=== PATIENT | male | born 1955 | race Hispanic/Latino ===

== ENCOUNTER 2017-03-27 17:51 | Emergency (ER) | payer OTHER ==
[~2017-03-27] VITALS: Ht 165.1 cm; Wt 81.6 kg
[~2017-03-27 17:51] MED LIST: PREDNISONE 10MG10 M1 PO; PROVENTIL0.09 MG/A1 INH; TESSALON PERLE100 MG PO; ZITHROMAX Z-PA250 M1 PO
[2017-03-27] MEDS ORDERED: FLUTICASONE PRO16 GM NASB (18:35)
--- NOTE | 2017-03-27 19:28 | ED INFLUENZA/URI COMPLAINT ---
History of Present Illness General Chief Complaint: Upper Respiratory Sx/Fever Stated Complaint: SINUS PRESSURE,CONGESTION,EAR PAIN,SORE THROAT Source: patient Exam Limitations: no limitations Vital Signs & Intake/Output Vital Signs & Intake/Output Vital Signs Date Time Temp Pulse Resp B/P B/P Pulse O2 O2 Flow FiO2 Mean Ox Delivery Rate 03/27 1940 99.1 102 18 109/62 97 03/27 1800 99.6 107 15 123/80 96 Room Air Room Air ED Intake and Output 03/28 0000 03/27 1200 Intake Total Output Total Balance Patient 180 lb Weight Weight Reported by Patient Measurement Method Allergies Coded Allergies: Iodinated Contrast- Oral and IV Dye (RASH 03/27/17) peach (FACIAL SWELLING 03/27/17) Reconcile Medications Amoxicillin/Potassium Clav (Augmentin 875-125 Tablet) 875 MG-125 MG TABLET 1 TAB PO BID SINSUSITIS Fluticasone Propionate 50 MCG/ACTUATION SPRAY.SUSP 2 SPRAY NASB DAILY ALLERGIES (Reported) Fluticasone Propionate (Flonase Allergy Relief) 50 MCG/ACTUATION SPRAY.SUSP 1 SPRAY GLADIS DAILY PRN CONGESTION Triage Note: PT TO ED FOR C/C OF SINUS PRESSURE, SORE THROAT, EAR PAIN AND SINUS CONGESTION X 1 WEEK. DENIES FEVERS. Triage Nurses Notes Reviewed? yes Onset: Gradual Duration: constant Timing: recent history Severity: moderate Severity Numbers: 5 HPI: Patient is a 62-year-old male who presents to emergency room with a gradual onset of 2 week history of right-sided sinus pressure and nasal congestion postnasal drip headache sore throat and low-grade fever. Patient is taking Flonase with no relief of symptoms. Denies any similar sick contacts. Denies any fever chills neck pain neck stiffness blurred vision ear pain chest pain cough shortness of breath rash and is otherwise without complaints. Patient is able to tolerate by mouth (TAMARA RUSSELL) Past History Travel History Traveled to [place] past 21 day No Medical History Any Pertinent Medical History? see below for history Cardiovascular: hyperlipidemia Surgical History Surgical History: non-contributory Psychosocial History What is your primary language Maltese Tobacco Use: Never used ETOH Use: denies use Illicit Drug Use: denies illicit drug use Family History Hx Contributory? No (TAMARA RUSSELL) Review of Systems Review of Systems Constitutional: Reports: see HPI. EENTM: Reports: see HPI, nasal congestion. Respiratory: Reports: no symptoms. Cardiovascular: Reports: no symptoms. GI: Reports: no symptoms. Genitourinary: Reports: no symptoms. Musculoskeletal: Reports: no symptoms. Skin: Reports: no symptoms. Neurological/Psychological: Reports: no symptoms. Hematologic/Endocrine: Reports: no symptoms. Immunologic/Allergic: Reports: no symptoms. All Other Systems: Reviewed and Negative (TAMARA RUSSELL) Physical Exam Physical Exam General Appearance: no apparent distress, alert Ears, Nose, Throat: moist mucous membrane, hearing grossly normal, Tympanic normal, pharynx normal, nasal congestion, nasal drainage Comments: Well-developed well-nourished person in no acute distress HEENT: Normal EENT exam, extraocular motion intact, no nystagmus. Pupils equally round and reactive to light and accommodation. Nose is atraumatic. External auditory canal and Tympanic membranes clear. Pharynx normal. No swelling or edema. Right maxillary sinus point tenderness noted Neck: Supple, no lymphadenopathy, normal range of motion without pain or tenderness Back: Nontender, no CVA tenderness. Cardiovascular: Regular rate and rhythms no murmurs rubs or gallops, normal JVP Respiratory: Chest nontender. No respiratory distress.breath sounds clear to auscultation bilaterally Abdomen: Soft, nontender nondistended, no appreciable organomegaly. Normal bowel sounds. No ascites Extremity: No edema, no calf tenderness to palpation, normal and equal pulses. Neuro: Alert oriented x3, motor sensory normal, Skin: No appreciable rash on exposed skin, skin is warm and dry. Psych: Mood and affect is normal, memory and judgment is normal. Core Measures Severe Sepsis Present: No Septic Shock Present: No (TAMARA RUSSELL) Progress Differential Diagnosis: influenza, meningitis, neutropenia, otitis, pneumonia, pharyngitis, sinusitis Plan of Care: Orders Procedure Date/time Status THROAT CULTURE W/QUICK STREP 03/27 1802 Active he was afebrile nontoxic-appearing clear lungs auscultation due to history of present illness and exam findings patient has suspicion of sinusitis. He was strongly advised to follow-up with the ENT as he has an establishment with a provider locally (TAMARA RUSSELL) Initial ED EKG: none (TAMARA RUSSELL) Departure Departure Disposition: HOME OR SELF CARE Condition: Stable Clinical Impression Primary Impression: Sinusitis Referrals: PATIENT HAS NO PRIMARY CARE DR (PCP/Family) Additional Instructions: As discussed begin the prescription of Augmentin as directed for the full course begin the prescription of Flonase for congestion. Begin [id number] Sudafed for congestion. Prescriptions are waiting a [facility] pharmacy. If no better in 4 days follow-up with your established ENT doctor. If symptoms worsen return to emergency room Departure Forms: Customer Survey General Discharge Information Prescriptions: Current Visit Scripts Amoxicillin/Potassium Clav (Augmentin 875-125 Tablet) 1 TAB PO BID #20 TAB Fluticasone Propionate (Flonase Allergy Relief) 1 SPRAY GLADIS DAILY PRN CONGESTION #1 BOT (TAMARA RUSSELL) PA/MATERIAL MIXER Co-Sign Statement Statement: ED Attending supervision documentation- [] I saw and evaluated the patient. I have also reviewed all the pertinent lab results and diagnostic results. I agree with the findings and the plan of care as documented in the PA's/MATERIAL MIXER's documentation. [x] I have reviewed the ED Record and agree with the PA's/MATERIAL MIXER's documentation. [] Additions or exceptions (if any) to the PAs/MATERIAL MIXER's note and plan are summarized below: [] (YANIRA SEE,BENI Bellamy)
[2017-03-27 19:40] VITALS: BP 109/62
[2017-03-27] MEDS ORDERED: FLONASE ALLERG9.9 ML NAS (20:11)
[2017-03-27] MEDS ORDERED: AUGMENTIN 875-1 EACH PO (20:11)
== END 2017-03-27 20:22 ==
LOC: ERH 17:51
DX: J32.9 Chronic sinusitis, unspecified (principal)